=== PATIENT | male | born 1950 | race Caucasian/White ===

== ENCOUNTER 2017-02-12 18:51 | Emergency (ER) | payer MEDICARE ==
[~2017-02-12] VITALS: Ht 172.7 cm; Wt 81.6 kg
[~2017-02-12 18:51] MED LIST: DAYPRO600 M1 PO; ROBAXIN750 MG PO; VICODIN 500 MG-1 TAB PO
[2017-02-12 18:58] VITALS: BP 144/76
[2017-02-12] MEDS ORDERED: CLINDAMYCIN HC300 MG PO (19:20)
[2017-02-12] MEDS ORDERED: NAPROSYN500 MG PO (19:20)
== END 2017-02-12 19:31 | disposition home or self-care (01) ==
LOC: ED 18:51
DX: K04.7 Periapical abscess without sinus (principal); Z91.040 Latex allergy status

== ENCOUNTER 2017-11-27 16:11 | Emergency (ER) | payer MEDICARE ==
[~2017-11-27] VITALS: Ht 172.7 cm; Wt 81.6 kg
--- NOTE | ~2017-11-27 | EKG ---
[place], [place] ELECTROCARDIOGRAM REPORT NAME: ADELITA ELLIOTT SR UNIT #: [id number] ROOM: DOCTOR: EPIPHANY DRAFT REPORT BIRTHDATE: [birth year] [facility] Test Date: 2017-11-27 Test Time: 16:41:00 Pat Name: ADELITA ELLIOTT Department: Room: Gender: [employer]: Delores Bey : 1950 Requested By: REMI GUZMAN Order Number: [id number] Reading MD: Blayne Mcgregor MD Measurements Intervals [place] Rate: 83 P: -6 ND: 181 QRS: 3 QRSD: 77 T: 41 QT: 332 QTc: 390 Interpretive Statements Sinus rhythm Abnormal R-wave progression, early transition Electronically Signed On 12-01-2017 8:40:21 PDT by Blayne Mcgregor MD CM:EKGRPT:ELECTROCARDIOGRAM REPORT [id number] REMI GUZMAN EPIPHANY DRAFT REPORT REMI GUZMAN
[~2017-11-27 16:11] MED LIST changes: +CLINDAMYCIN HC300 MG PO; +NAPROSYN500 MG PO
[2017-11-27 16:48] LABS: BASO % 0.2 % (0.0-1.0); EOS % 0.3 % (1.0-4.0); HEMATOCRIT 40.4 % (42.0-52.0); HEMOGLOBIN 13.8 g/dl (14.0-18.0); LYMPH # 0.4 10*3/uL (1.3-4.4); LYMPH % 3.5 % (27.0-41.0); MEAN CELL VOLUME 94.6 fl (80.0-94.0); MEAN CORPUSCULAR HGB 32.3 pg (27.0-31.0); MEAN CORPUSCULAR HGB CONC 34.2 g/dl (33.0-37.0); MEAN PLATELET VOLUME 8.6 fl (9.6-12.3); MONO # 1.1 10*3/uL (0.1-1.0); MONO % 9.2 % (3.0-9.0); NEUT # 10.2 10*3/uL (2.3-7.9); PLATELET COUNT AUTOMATED 141 10*3/uL (130-400); RED BLOOD COUNT 4.27 10*6/uL (4.50-5.90); RED CELL DISTRI WIDTH 12.4 % (0-14.5); WHITE BLOOD COUNT 11.8 10*3/uL (4.8-10.8)
[2017-11-27 16:56] LABS: ACT PARTIAL THROMBO TIME 28.1 SECONDS (20.8-31.5)
[2017-11-27 17:03] LABS: ALBUMIN 3.2 gm/dl (3.1-4.5); ALKALINE PHOSPHATASE 71 U/L (45-117); BUN 14 mg/dl (7-24); CHLORIDE 103 mmol/L (98-107); CREATININE 1.07 mg/dL (0.70-1.30); LIPASE 80 U/L (73-393); POTASSIUM 3.8 mmol/L (3.5-5.1); SGOT/AST 18 IU/L (3-35); SGPT/ALT 20 U/L (12-78); SODIUM 137 mmol/L (136-145); T3 UPTAKE 36 % (31-39); THYROXINE (T4) TOTAL 8.8 ug/dl (4.5-12.1); TOTAL PROTEIN 7.9 gm/dL (6.4-8.2)
[2017-11-27 17:08] LABS: THYROID STIM HORMONE (HS) 0.808 uIU/ml (0.358-4.75)
[2017-11-27 17:09] LABS: TROPONIN I < 0.015 ng/ml (<0.045)
[2017-11-27 18:12] VITALS: BP 100/61
[2017-11-27] MEDS ORDERED: AUGMENTIN 875875 MG PO (18:29)
[2017-11-27] MEDS ORDERED: CLINDAMYCIN HC300 MG PO (18:29)
[2017-12-15] MEDS ORDERED: NO HOME MEDICATION (11:18)
== END 2017-11-27 18:48 | disposition home or self-care (01) ==
LOC: ED 16:11
PROVIDERS: Nurse Practitioner Family
DX: K02.9 Dental caries, unspecified (principal); R79.82 Elevated C-reactive protein (CRP); Z79.2 Long term (current) use of antibiotics; Z79.1 Long term (current) use of non-steroidal anti-inflammatories (NSAID)

== ENCOUNTER → 2017-12-11 | Outpatient (CLI) | payer MEDICARE ==
[~2017-12-11] MED LIST changes: +AUGMENTIN 875875 MG PO; +NO HOME MEDICATION
== END | disposition home or self-care (01) ==
LOC: CT 07:54
DX: Z12.5 Encounter for screening for malignant neoplasm of prostate (principal); R05 Cough; R53.83 Other fatigue

== ENCOUNTER → 2017-12-19 | Day surgery (SDC) | payer MEDICARE ==
[~2017-12-19] VITALS: Ht 172.7 cm; Wt 74.8 kg
--- NOTE | ~2017-12-19 | PROC NOTE ---
[place], [place] PROCEDURE NOTE NAME: ADELITA ELLIOTT SR [facility] #: [id number] UNIT #: [id number] ROOM: DOCTOR: ATILIO WOMACK MD BIRTHDATE: [birth year] DOS: 12/19/2017 PREOPERATIVE DIAGNOSIS: Screening examination, weight loss. POSTOPERATIVE DIAGNOSES: Sigmoid diverticulosis, colon polyps x 2 (15 cm, 65 cm from the anal verge). PROCEDURE: Colonoscopy with colon polyp biopsy x 2. SURGEON: Atilio Womack M.D. WATER REGISTRAR: JALYN. ANESTHESIA: MAC. INDICATIONS: This is a 67-year-old gentleman who has been having unintended weight loss and who is here for a colonoscopy for workup. The procedure and its complications were explained to the patient in detail preoperatively. Complications that were discussed included, but were not limited to, bleeding, missed lesions, colon perforation, and prolonged pain. He agreed to proceed. DESCRIPTION OF PROCEDURE: After identifying the patient, the patient was brought in the endoscopy suite and placed in the left lateral position. After IV sedation was administered, a timeout procedure was called and a digital rectal exam was performed. This was within normal limits. An adult colonoscope was now introduced into the anal canal and advanced sequentially into the rectum, sigmoid colon, descending colon, transverse colon, ascending colon up to the cecum. Upon reaching the cecum, the scope was withdrawn. The prep was found to be optimal. Total withdrawal time was approximately 7 minutes. There was found to be a polyp at 15 cm and 65 cm from the anal verge and both of these were removed with the help of polyp forceps and sent for histopathological diagnosis. Also noted was minimal sigmoid diverticulosis. No evidence of any other lesions or bleeding that could be identified. The scope was withdrawn and the scope was then retroflexed in the rectum and the scope was then withdrawn and the patient was brought back to the recovery room in stable fashion. There were no complications. Dr. Atilio Womack, the attending surgeon, was present throughout the operating case. Based on these findings, the patient is recommended to have another colonoscopy in the next 3-5 years or sooner if new symptoms appear. These findings were discussed with the patient's family in the recovery room. I will discuss these findings with the patient himself when he sees me in the postoperative recovery period. [place], [place] PROCEDURE NOTE NAME: LEXIADELITA Osborne SR UNIT #: [id number] ROOM: DOCTOR: ATILIO WOMACK MD BIRTHDATE: [birth year] Atilio Womack MD CM:PROCNOTE:PROCEDURE NOTE [id number] ATILIO WOMACK MD
[2017-12-19 07:35] VITALS: BP 135/61
[2017-12-19 08:15] VITALS: BP 82/50
[2017-12-19 08:30] VITALS: BP 91/51
[2017-12-19 08:45] VITALS: BP 104/73
== END | disposition home or self-care (01) ==
LOC: SDC 12-12 11:00
DX: D12.5 Benign neoplasm of sigmoid colon (principal); K62.1 Rectal polyp; K57.30 Diverticulosis of large intestine without perforation or abscess without bleeding; Z98.890 Other specified postprocedural states

== ENCOUNTER → 2020-09-07 | Outpatient (CLI) | payer OTHER | END | disposition home or self-care (01) | LOC: US 09:00 | PROVIDERS: ATTEND Physician Assistant | DX: R10.84 Generalized abdominal pain (principal) ==

== ENCOUNTER → 2021-09-07 | Outpatient (CLI) | payer OTHER | END | disposition home or self-care (01) | LOC: RAD 13:27 | PROVIDERS: ATTEND Nurse Practitioner Primary Care | DX: M19.071 Primary osteoarthritis, right ankle and foot (principal); M77.31 Calcaneal spur, right foot ==

== ENCOUNTER → 2022-05-17 | Day surgery (SDC) | payer OTHER ==
[~2022-05-17] VITALS: Ht 172.7 cm; Wt 81.6 kg
[~2022-05-17] MED LIST changes: +CARAFATE1 G1 PO; +PROTONIX40 MG PO
[2022-05-17 07:26] VITALS: BP 139/74
[2022-05-17 08:43] VITALS: BP 94/61
[2022-05-17 08:58] VITALS: BP 107/70
[2022-05-17 09:13] VITALS: BP 105/60
== END | disposition home or self-care (01) ==
LOC: SDC 05-06 14:00
PROVIDERS: ATTEND Surgery
DX: Z12.11 Encounter for screening for malignant neoplasm of colon (principal); K29.50 Unspecified chronic gastritis without bleeding; K63.5 Polyp of colon; K57.30 Diverticulosis of large intestine without perforation or abscess without bleeding; K21.00 Gastro-esophageal reflux disease with esophagitis, without bleeding; Z79.899 Other long term (current) drug therapy

== ENCOUNTER → 2022-06-14 | Outpatient (CLI) | payer OTHER | END | disposition home or self-care (01) | LOC: CT 06-13 13:00 | PROVIDERS: ATTEND Nurse Practitioner Primary Care | DX: R06.2 Wheezing (principal); Z77.090 Contact with and (suspected) exposure to asbestos ==

== ENCOUNTER 2024-06-02 16:33 | Emergency (ER) | payer OTHER ==
[~2024-06-02] VITALS: Ht 172.7 cm; Wt 83.9 kg
[2024-06-02 16:42] VITALS: BP 128/82
[2024-06-02] MEDS ORDERED: FAMOTIDINE 50 ML IV ONE (17:10)
[2024-06-02] MEDS ORDERED: Ondansetron Hydrochloride 4 MG/2 ML VIAL IV ONE (17:10)
[2024-06-02] MEDS ORDERED: SODIUM CHLORIDE 0.9% 1,000 ML IV ONE (17:10)
[2024-06-02] MEDS ORDERED: Loperamide Hydrochloride 2 MG CAP PO ONE (17:15)
[2024-06-02 17:25] LABS: BASO % 0.3 % (0.0-1.0); EOS % 0.2 % (1.0-4.0); HEMATOCRIT 45.7 % (42.0-52.0); MEAN CELL VOLUME 98.1 fl (80.0-94.0); MEAN CORPUSCULAR HGB 32.2 pg (27.0-31.0); MEAN CORPUSCULAR HGB CONC 32.8 g/dl (33.0-37.0); MEAN PLATELET VOLUME 8.8 fl (9.6-12.3); MONO % 15.9 % (3.0-9.0); NEUT # 4.4 10*3/uL (2.3-7.9); NEUT % 73.2 % (47.0-73.0); PLATELET COUNT AUTOMATED 146 10*3/uL (130-400); RED BLOOD COUNT 4.66 10*6/uL (4.50-5.90); RED CELL DISTRI WIDTH 12.5 % (0-14.5)
[2024-06-02 17:39] LABS: ACT PARTIAL THROMBO TIME 26.8 SECONDS (20.0-32.1)
[2024-06-02 17:50] LABS: ALKALINE PHOSPHATASE 54 U/L (46-116); BUN 20 mg/dl (9-23); CHLORIDE 105 mmol/L (98-107); CPK 101 U/L (34-171); LIPASE 27 U/L (12-53); POTASSIUM 3.7 mmol/L (3.4-5.1); SGPT/ALT 24 U/L (5-49); TOTAL PROTEIN 7.2 gm/dL (6.0-8.0)
[2024-06-02] MEDS ORDERED: PEPCID40 MG PO (18:14)
[2024-06-02] MEDS ORDERED: Ondansetron4 MG PO (18:14)
[2024-06-02] MEDS ORDERED: METRONIDAZOLE500 M1 PO (18:48)
== END 2024-06-02 18:53 | disposition home or self-care (01) ==
LOC: ED 16:33
PROVIDERS: Emergency Medicine
DX: K52.9 Noninfective gastroenteritis and colitis, unspecified (principal); Z79.899 Other long term (current) drug therapy